=== PATIENT | male | born 1960 | race Caucasian/White ===

== ENCOUNTER → 2019-07-20 11:09 | Outpatient (BNVA) | payer OTHER, SELFPAY | PROVIDERS: Referring Provider Family Medicine; Visit Provider Family Medicine | DX: R09.81 Nasal congestion (principal); R68.83 Chills (without fever); R53.81 Other malaise; R53.83 Other fatigue | CPT/HCPCS: 87400 ==

== ENCOUNTER → 2019-07-21 11:00 | Outpatient (BNVA) | payer OTHER, SELFPAY | PROVIDERS: Referring Provider Family Medicine; Visit Provider Family Medicine | DX: R09.81 Nasal congestion (principal); R68.83 Chills (without fever); R53.81 Other malaise; R53.83 Other fatigue | CPT/HCPCS: 87635 ==

== ENCOUNTER → 2024-04-09 10:34 | Outpatient (BNVA) | payer MEDICARE, SELFPAY | PROVIDERS: Visit Provider Family Medicine | DX: I10 Essential (primary) hypertension (principal); E78.5 Hyperlipidemia, unspecified; M25.561 Pain in right knee; M25.562 Pain in left knee | CPT/HCPCS: 80053; 84439; 84443; 84550; 85025 ==

== ENCOUNTER 2024-06-01 09:10 | Outpatient (CLI) | payer MEDICARE, SELFPAY ==
--- NOTE | 2024-06-01 09:14 | XRR_ITS ---
PROCEDURE INFORMATION: Exam: XR Right Knee Exam date and time: 06/01/2024 9:28 AM Age: 64 years old Clinical indication: Right medial knee pain x 4 mo, no known injury; Additional info: R knee pain, osteoarthritis TECHNIQUE: Imaging protocol: Radiologic exam of the right knee. Views: 3 views. COMPARISON: No relevant prior studies available. FINDINGS: Bones/joints: Normal. No fracture or dislocation. No acute osseous or joint abnormality. Soft tissues: Normal. XR/XR knee RT 3V* [id number] IMPRESSION: No acute findings.
== END 2024-06-01 09:11 | disposition home or self-care (01) ==
LOC: RAD 09:11
PROVIDERS: Family Provider Family Medicine; Visit Provider Family Medicine
DX: M25.561 Pain in right knee (principal); M25.562 Pain in left knee; I10 Essential (primary) hypertension; Z12.5 Encounter for screening for malignant neoplasm of prostate
CPT/HCPCS: 73562; 80061; 82728; 83540; 85025; G0103

== ENCOUNTER → 2024-06-03 09:05 | Outpatient (BNVA) | payer MEDICARE, SELFPAY | PROVIDERS: Family Provider Family Medicine; PCP Family Medicine; Visit Provider Orthopaedic Surgery | DX: M25.561 Pain in right knee (principal); G89.29 Other chronic pain | CPT/HCPCS: 73560; 73565; 99204 ==

== ENCOUNTER 2024-06-16 14:10 | Outpatient (CLI) | payer MEDICARE, SELFPAY ==
--- NOTE | 2024-06-16 14:30 | MR_ITS ---
WS: [id number] MRI RIGHT KNEE HISTORY: M25.561 - Pain in right knee, chronic pain medial. COMPARISON: 06/03/2024 Anterior cruciate ligament: Intact. Posterior cruciate ligament: Intact. Medial collateral ligament: No full-thickness tear of the medial collateral ligament. Increased T2 signal in the central MCL. At the level of the meniscus there is meniscocapsular separation and mild MCL sprain. Posterior lateral corner structures: Intact. Medial menisci: Abnormal posterior horn of the medial meniscus. There is a radial tear involving the mid body. Tear extends to the inferior and superior articular surfaces. There is additional pericapsular edema and findings of meniscocapsular separation. Lateral meniscus: Intact. Normal signal, size and shape. Extensor mechanism: Distal quadriceps tendon and patellar tendons are intact. Fluid and soft tissue: No joint effusion. Very small Spencer's cyst. Osseous and articular structures: Patellofemoral compartment: Lateral subluxation of the patella. There is mild flattening of the trochlear groove. No fractures or marrow edema. Mild diffuse chondromalacia. Medial compartment: Mild narrowing of the medial compartment. Superficial area of chondromalacia involving the tibial plateau. Lateral compartment: Mild narrowing. No marrow edema or fracture. Lobulated fluid collection along the popliteus tendon. May be bursal distention or ganglion. MR/MR knee RT wo con* [id number] IMPRESSION: 1. Mild sprain medial collateral ligament. 2. Meniscocapsular separation involving the posterior medial meniscus from the joint capsule. Pericapsular edema. This is also at the level of the MCL sprain . 3. Radial tear mid body posterior horn medial meniscus. 4. Lateral subluxation of the patella with mild flattening of the normal troch lear groove. Mild diffuse patellar chondromalacia. 5. Mild narrowing of the medial and lateral compartments. Superficial chondrom alacia medial tibial plateau. 6. Popliteus tendon ganglion or bursal distention.
== END 2024-06-16 14:11 | disposition home or self-care (01) ==
LOC: RAD 14:13
PROVIDERS: Family Provider Family Medicine; PCP Family Medicine; Visit Provider Orthopaedic Surgery
DX: S83.411A Sprain of medial collateral ligament of right knee, initial encounter (principal); G89.29 Other chronic pain; R93.6 Abnormal findings on diagnostic imaging of limbs; S83.241A Other tear of medial meniscus, current injury, right knee, initial encounter; S83.011A Lateral subluxation of right patella, initial encounter; M94.261 Chondromalacia, right knee; X58.XXXA Exposure to other specified factors, initial encounter; M71.21 Synovial cyst of popliteal space [Baker], right knee; M67.863 Other specified disorders of tendon, right knee
CPT/HCPCS: 73721

== ENCOUNTER → 2024-07-05 09:01 | Outpatient (BNVA) | payer MEDICARE, SELFPAY | PROVIDERS: Family Provider Family Medicine; PCP Family Medicine; Visit Provider Orthopaedic Surgery | DX: M23.203 Derangement of unspecified medial meniscus due to old tear or injury, right knee (principal); Z01.818 Encounter for other preprocedural examination | CPT/HCPCS: 36415; 80053; 81001; 85025; 99213 ==

== ENCOUNTER 2024-07-13 10:23 | Day surgery (SDC) | payer MEDICARE, SELFPAY ==
[2024-07-13] VITALS (35 sets, daily range): BP systolic 120–164; BP diastolic 82–105; PULSE 58–90; RESP 12–22; TEMP 36.4–36.7; O2SAT 90–96; BMI 27.2
--- NOTE | 2024-07-13 10:51 | ANES.PREANE2 ---
Pre-Anesthetic Assessment Height/Weight: Height 5 ft 10 in Preop Diagnosis: Knee pain Operation Date: 07/13/24 12:10 Proposed Procedures p RIGHT knee arthroscopy POSSIBLE medial meniscus repair verses debridement(Right) - Anthony Likn MD Was Beta Ferny taken within 24 hours: Yes Was Clonidine taken within 24 hours: N/A Social No alcohol and No tobacco Exam alert, oriented x 3, clear to auscultation bilaterally and regular rate & rhythm Airway Submandibular: within normal limits Cervical ROM: within normal limits Mallampati: Class III Comments: Comments: To bottom implants, no other teeth Anesthetic Plan ASA status: 2 Other: No prior issues with anesthesia NPO since yesterday evening History of hypertension on amlodipine/benazepril, propranolol l and HCTZ History of RAMON, untreated Labs reviewed from 07/05/2024 and acceptable for procedure today METs greater than 4 Plan for general anesthesia Medications/Allergies Home Medications ?Medication ?Instructions ?Recorded ?Confirmed ?Last Taken ?Type amlodipine 10 mg-benazepril 20 mg 1 cap PO DAILY #90 caps 11/18/23 07/12/24 07/12/24 Rx capsule aspirin 81 mg tablet,delayed 81 mg PO DAILY 11/18/23 07/12/24 07/06/24 History release (Dorothy Low Dose Aspirin) escitalopram oxalate 20 mg tablet 20 mg PO DAILY #90 tabs 11/18/23 07/12/24 Unknown Rx hydrochlorothiazide 25 mg tablet 25 mg PO DAILY #90 tabs 11/18/23 07/12/24 07/12/24 Rx propranolol 10 mg tablet 10 mg PO TID PRN anxiety #30 tabs 11/18/23 07/12/24 Unknown Rx tadalafil 20 mg tablet (Cialis) 20 mg PO DAILY PRN sexual activity 11/18/23 07/12/24 Unknown Rx #1 tab celecoxib 200 mg capsule 200 mg PO DAILY arthritis #90 caps 06/01/24 07/12/24 07/05/24 Rx rosuvastatin 40 mg tablet 40 mg PO DAILY #90 tabs 06/02/24 07/12/24 Unknown Rx fluticasone propionate 50 1 spray intranasal DAILY #16 grams 06/07/24 07/12/24 Unknown Rx mcg/actuation nasal spray,suspension benazepril 20 mg tablet 20 mg PO DAILY #90 tabs 07/05/24 07/12/2407/12/25 Rx alprazolam 1 mg tablet 1 mg PO DAILY PRN anxiety #90 tabs 07/09/24 07/12/24 Unknown Rx Allergies Allergy/AdvReac Type Severity Reaction Status Date / Time No Known Allergies Allergy Verified 07/05/24 11:55 [facility] Anesthesia Medical History Obstructive sleep apnea he did not tolerate CPAP Abnormal hemoglobin due to untreated (he can't tolerate) CPAP Generalized osteoarthritis Right knee pain Low back pain hx of LYUDMILA Lumbar at [facility] 2018 Chondromalacia of both patellae Bilateral knee pain Elevated PSA had bxes done--neg Erectile disorder History of right inguinal hernia Generalized anxiety disorder Hyperlipidemia he quit taking his cholesterol med b/c of body aches Hypertension Surgical History Hx of prostate biopsy 2018--benign Hx of colonoscopy 01.31.09 Hx of umbilical hernia repair Hx of right inguinal hernia repair Hx of inguinal herniorrhaphy left Family History Father Lung cancer Social History Smoking and tobacco/nicotine status: former use of tobacco/nicotine Quit status (tobacco/nicotine): has quit using Year quit tobacco: age 18 Second hand smoke exposure: No Alcohol intake: current Alcohol intake frequency: 0-2 Drinks per Day Alcohol type: hard liquor Substance/Drug Use: never Adopted: No Caregiver/support person: No Lives independently: Yes Household members: spouse Marital status: Number of children: 3 Current occupational status: retired Previous occupational history: diesel powerplant mechanic
--- NOTE | 2024-07-13 10:57 | W.PM.OPSUD ---
Surgery/Procedure H&P Update DATE OF PROCEDURE: July 13, 2024 DATE H&P PERFORMED: 07/13/24 H&P UPDATE INFORMATION: I have reviewed H&P completed within last 30 days, I have examined patient prior to procedure, No changes to prior documentation and Risks and benefits of the procedure reviewed PLANNED PROCEDURE: Operation Date: 07/13/24 12:10 Proposed Procedures p RIGHT knee arthroscopy POSSIBLE medial meniscus repair verses debridement(Right) - Anthony Link MD
[2024-07-13] MEDS: sodium chloride 0.9% 1,000 ML 30 ML IV (11:03)
[2024-07-13] MEDS: midazolam 1 mg/mL INJ 2 mL 2 MG IVP (11:21)
[2024-07-13] MEDS: ceFAZolin 2,000 mg SDV 2000 MG IVP ×2 (11:59→16:00)
--- NOTE | 2024-07-13 13:04 | ANES.PROC ---
Anesthesia Procedures Procedure/Date: 07/13/24 Nerve Block ^: Nerve Block 1: Main Anesthesia: general anesthesia Time Out Performed: Yes Consent: requested by attending/covering physician and other (Spoke to patient's ) Nerve block location: adductor canal Anesthesia monitors applied: pulse oximetry, EKG, BP cuff and oxygen Nerve block position: supine Anesthetic Used: ropivicaine 0.5% Amount of anesthesia used (mL): 20 Ultrasound used to: recognize landmarks Nerve Stimulator Used?: No Interscalene/Femoral BLK: other needle (pjunk 4inch) Injection: neg aspiration of heme Patient Tolerated Procedure: well Complications: none
--- NOTE | 2024-07-13 17:05 | P.OP_ITS ---
Operative Report Date of procedure: July 13, 2024 Surgeon: Anthony Link MD Procedure: Preoperative diagnosis: Internal derangement of the right knee, MRI identifies a large posterior horn medial meniscal tear. Postop diagnosis: Inflamed synovitis throughout the knee, grade 2 3 chondromalacia of IT groove, grade II chondromalacia of posterior patella, large fragmented tear posterior horn/1/3 of medial meniscus. Fraying of the inner edge posterior one half lateral meniscus. Procedure: Diagnostic right knee arthroscopy with partial medial and lateral meniscectomies. Chondroplasty posterior patella and IT groove. Surgeon: Anthony Link MD Anesthesia: General EBL: 100 cc Complications: Equipment failure causing delay in the surgery after anesthesia was administered. Indications: Anthony is a 64-year-old white male seen in the orthopedic clinics with complaints of debilitating right knee pain. He came in with an MRI from his primary care demonstrating a large tear of the posterior horn medial meniscus. Almost appeared that it was torn away from the capsule possibly repairable. He also had some mild degenerative changes seen on his MRI in his knee. Otherwise no gross abnormalities. Therefore at this time patient was offered a diagnostic knee arthroscopy with all indicated procedures. All risk benefits treatment alternatives were discussed. Patient was understanding that debridement of the meniscal tear was most likely going to happen however if I was able repair it back or need to be repaired back to its insertion or root this would be done at this time of surgery also. Patient was agreeable to surgical procedure. Procedure: After obtaining her consent patient was taken the operating room placed op table supine position general anesthetic administered. Once Konesky was achieved right legs placed leg millan with the bed was dropped. Right leg was prepped and draped usual fashion. After surgical timeout standard anterior medial lateral portals were made with a #11 blade camera cans placed the lateral portal of the knee. When attempts were placed the camera within the knee was found that the lens was faulty and unable to give a clear picture and therefore I could not see to continue on the procedure. Conditional lenses for the arthroscopy were in centralize sterilization and would not be ready for another hour. With no other option then to wait the patient was awakened and tra nsported to recovery room after the knee was dressed with gauze and Kerlix wrap and Rakan wrap for compression. Patient was taken to the PACU and held there until equipment is prepared again. At this time patient also received an adductor canal block from anesthesia for pain control while he waited for the procedure to progress. Once equipment was sterilized and checked to be performing well. Patient was taken back to the operating room and placed on the operative table supine position and general anesthetic ministered ministered again. Again right legs placed leg millan and foot the bed was dropped. Leg was prepped and draped usual fashion. Surgical timeout was done again. Camera is placed through the lateral portal that was previously made. Tour the knee was undertaken demonstrating a well intact articular surface of the posterior patella other than the central contact portion that had grade II chondromalacia. There is hypertrophic synovium that was quite inflamed in the area. IT groove was evaluated and found to have 2/3 chondromalacia of this area and this was debrided with mechanical shaver. As well as the posterior patella. Medial gutter was clear medial compartment demonstrated a fragmented posterior horn tear of the medial meniscus. The area was probed with the nerve hook demonstrating that was well attached to the capsular insertions and therefore no repair necessary. Using small hand instruments and mechanical shaver partial medial meniscectomy removing a good portion of the posterior third of the meniscus was done. There is minimal chondromalacia within the medial compartment. Intercondylar notch demonstrated intact ACL with some hypertrophic synovium in the area. Lateral compartment demonstrated degenerative tearing of the inner edge of the posterior half of the lateral meniscus. This debrided with mechanical shaver down to stable cartilaginous space. Knee was washed with copious amounts of irrigation. Candidates were removed. Wounds were closed with 3-0 Prolene interrupted sutures. Patient had received a adductor canal block prior to the second part of this procedure therefore postoperative Marcaine was not necessary in the wounds. Wounds are clean and dry dressed with Xeroform gauze sterile gauze dressing Kerlix wrap and Rakan wrap for compression. Patient was then transferred back to the PACU in stable condition.
--- NOTE | 2024-07-13 17:32 | PC.NURSE ---
Called Denisha Martin CRNA re: elevated blood pressure 156/109. Patient baseline blood pressure 162/94. Patient states he has not taken blood pressure medications today, but has them with him. No complaints of chest pain or increased pain. Orders received to allow patient to discharge home. Instructed patient to take blood pressure medications, monitor this evening and return to the ER with any chest pain or if blood pressure remains elevated.
--- NOTE | 2024-07-13 17:35 | ANE.PACU2 ---
Inpatient post-anesthesia follow up: Airway intact: Yes Vital signs: Temperature 97.7 F Pulse Rate 72 Respiratory Rate 18 Blood Pressure 158/97 Pulse Oximetry 94 Oxygen Delivery Me thod Room Air Oxygen Flow Rate 8 Fraction of Inspir ed Oxygen 2 Hydration adequate: Yes Nausea and vomiting: No Pain level: 1 Mental status: Baseline
== END 2024-07-13 18:15 | disposition home or self-care (01) ==
PROVIDERS: PCP Family Medicine; Visit Provider Orthopaedic Surgery
PROC: (CPT 29870; principal; 2024-07-13 12:10)
PROC: (CPT 29880; 2024-07-13 13:30)
DX: M23.8X1 Other internal derangements of right knee (principal); M65.861 Other synovitis and tenosynovitis, right lower leg; G47.33 Obstructive sleep apnea (adult) (pediatric); Z79.82 Long term (current) use of aspirin; Z87.891 Personal history of nicotine dependence; E78.5 Hyperlipidemia, unspecified; I10 Essential (primary) hypertension
CPT/HCPCS: 29880; J0690; J1100; J1171; J2250; J2405; J2704; J3010; J7030; J9999

== ENCOUNTER → 2024-08-03 13:18 | Outpatient (BNVA) | payer MEDICARE, SELFPAY | PROVIDERS: PCP Family Medicine; Visit Provider Orthopaedic Surgery | DX: Z98.890 Other specified postprocedural states (principal) | CPT/HCPCS: 99024 ==

== ENCOUNTER → 2024-11-15 07:57 | Outpatient (BNVA) | payer MEDICARE, SELFPAY | PROVIDERS: PCP Family Medicine; Visit Provider Dermatology | DX: L72.0 Epidermal cyst (principal); L57.8 Other skin changes due to chronic exposure to nonionizing radiation; L82.1 Other seborrheic keratosis; D48.5 Neoplasm of uncertain behavior of skin; L57.0 Actinic keratosis | CPT/HCPCS: 11102; 17000; 99203 ==

== ENCOUNTER → 2024-11-24 07:50 | Outpatient (BNVA) | payer MEDICARE, SELFPAY | PROVIDERS: PCP Family Medicine; Visit Provider Dermatology | DX: D22.4 Melanocytic nevi of scalp and neck (principal); D22.61 Melanocytic nevi of right upper limb, including shoulder; D48.5 Neoplasm of uncertain behavior of skin; R20.8 Other disturbances of skin sensation; R23.8 Other skin changes | CPT/HCPCS: 11422; 12041; 99213 ==